=== PATIENT | female | born 1945 | race Caucasian/White ===

== ENCOUNTER 2017-01-30 06:50 | Day surgery (SDC) | payer MEDICARE, MEDICAID ==
[~2017-01-30] VITALS: Ht 160 cm; Wt 95.2 kg
[~2017-01-30 06:50] MED LIST: AMLODIPINE BESYL5 MG PO; ATENOLOL-CHLOR1 EAC1 PO; BENAZEPRIL HCL20 MG PO; COZAAR50 MG PO; FISH OIL 1,0001 EAC1 PO; HYDROCHLOROTHIA25 MG PO; NORCO 5-325 TA1 EACH PO; SAM E PO; VITAMIN C1000 M1 PO; VITAMIN D2000 UNIT PO
--- NOTE | 2017-01-30 10:31 | NUR ---
01/30/17 1031 Alexsandra Ortiz REPORT FROM [employer].
[2017-01-30] MEDS ORDERED: ULTRAM50 MG PO (11:34)
--- NOTE | 2017-01-30 12:38 | NUR ---
PT IN , ALERT AND ORIENTED-SUPPORTED BY A FRIEND. SHE SHARED THIS IS HER THIRD SURGERY WITH DR CARLOS-SHE HAS LOTS OF CONFIDENCE IN HIM. EXTENDED A BLESSING, WILL FOLLOW NEEDED
--- NOTE | 2017-02-11 09:13 | OR ---
[facility] [address] [place], [place] [address] Signed DATE OF PROCEDURE: 01/30/17 PREOPERATIVE DIAGNOSIS: Medial meniscal tear, left knee. POSTOPERATIVE DIAGNOSIS: Medial meniscal tear, left knee. INCIDENTAL FINDINGS Areas of grade 2 to grade 3 chondral roll changer the medial femoral condyle and some areas of grade 2 chondral roll changer the weightbearing portion of the lateral femoral condyle. PROCEDURE: Knee arthroscopy with partial medial meniscectomy. SURGEON: Kalin Carlos MD ANESTHESIA: General. SPECIMEN: None COMPLICATIONS: None TOURNIQUET TIME: Was about 20 minutes. DETAILS OF PROCEDURE The patient taken to the operating room. After anesthesia was induced and airway secured, the patient was positioned, prepped and draped in the routine sterile fashion. The leg was exsanguinated with an Esmarch bandage. Pneumatic tourniquet was inflated to 30 0 mmHg. The outflow cannula was inserted superolaterally and the arthroscope was inserted through the standard anterolateral portal. An anteromedial portal was then created using a transillumination and localization with a spinal needle. A nerve hook was in troduced. Diagnostic arthroscopy revealed a significant inflammatory synovitis in the suprapatellar pouch. The patellofemoral joint had areas of grade 2 to grade 3 chondral changes over the patella and as well as over the trochlea. The medial recess was unremarkable except for some small femoral osteophytes. The medial compartment revealed a flap tear of the posterior horn of the medial meniscus along with some additional bone spurs on the lateral aspect of the medial femoral condyle. Intercondylar notch revealed an intact ACL and PCL. The lateral compartment revealed some areas of grade 2 chondral roll changer the weightbearing portion of the lateral femoral condyle along with a very tiny radial tear at the free edge of the meniscus. The lateral recess was unremarkable. The scope was returned to the medial compartment. By flexing and extending the knee was appreciated, there were some areas of grade 2 to grade 3 change in the medial femoral condyle, particularly over the weightbearing surface and posterior Electronically Signed By: KALIN CARLOS MD 02/11/17 0913 PATIENT NAME: ADRIA EMERSON OPERATIVE REPORT DATE OF : 45 PHYSICIAN: KALIN CARLOS MD REPORT #: [id number] REPORT IS CONFIDENTIAL AND NOT TO BE RELEASED WITHOUT AUTHORIZATION [facility] [address] [place] [id number] Signed there too. We then inserted basket forceps through the anteromedial portal and completed the meniscal tear. A single shard was delivered out of the knee and the edges were then trimmed and contoured with the motorized shaver. The knee was copiously irrigated and drained. The portals were closed with 3-0 nylon. A sterile dressing was applied over which a bulky dressing and Len bandage were placed. The patient was awakened and taken to recovery room, where she arrived in stable condition. Counts were correct and antibiotic protocols were followed. Kalin Carlos MD WFB/Modl /[id number] cc: Isaac Mclaughlin MD Electronically Signed By: KALIN CARLOS MD 02/11/17 0913 PATIENT NAME: ADRIA EMERSON OPERATIVE REPORT DATE OF : 45 PHYSICIAN: KALIN CARLOS MD REPORT #: [id number] REPORT IS CONFIDENTIAL AND NOT TO BE RELEASED WITHOUT AUTHORIZATION
== END 2017-01-30 12:30 | disposition home or self-care (01) ==
LOC: DS 06:50 → OPS 06:50 → DS 08:15 → OPS 08:15
PROVIDERS: Orthopaedic Surgery
PROC: 0SBD4ZZ Excision of Left Knee Joint, Percutaneous Endoscopic Approach (ICD-10-PCS; principal; 2017-01-30 06:45)
DX: S83.242A Other tear of medial meniscus, current injury, left knee, initial encounter (principal); M65.862 Other synovitis and tenosynovitis, left lower leg; I35.0 Nonrheumatic aortic (valve) stenosis; X50.1XXA Overexertion from prolonged static or awkward postures, initial encounter
CPT/HCPCS: 01400; J1885; J2405; J2704; J3010; J3301; J7120

== ENCOUNTER 2017-09-17 08:55 | Day surgery (SDC) | payer MEDICARE, OTHER ==
[~2017-09-17] VITALS: Ht 160 cm; Wt 95.2 kg
[~2017-09-17 08:55] MED LIST changes: +ALEVE220 MG PO; +LOSARTAN POTAS100 MG PO; +PEPCID40 MG PO; +ULTRAM50 MG PO
--- NOTE | 2017-09-17 11:23 | NUR ---
09/17/17 Carlton3 Chanel Garcia 1114 PT ARRIVE TO PACU MAINTAINING HER OWN AIRWAY ON 8L VIA MASK. RESP EVEN AND UNLABORED. 1117 O2 DECREASED TO 6L. PT DENIES PAIN AND NAUSEA.
--- NOTE | 2017-09-17 12:06 | NUR ---
SIG OTHER @ BS. PT ON CONTINUOUS PULSE OXIMETERY. PUDDING AND ICED WATER GIVEN. CALL LIGHT W/IN REACH. PT TOLERATING THE PUDDING WELL.
[2017-09-17] MEDS ORDERED: PERCOCET 5-3251 EACH PO (12:48)
--- NOTE | 2017-09-17 13:02 | NUR ---
OXYGEN SATURATION REMAINS 98% ON 2L VIA NC. OXYGEN DC @ THIS TIME. CONTINUOUS OXIMETERY REMAINS IN PLACE.
--- NOTE | 2017-09-17 13:54 | NUR ---
RENALDO 1345: PT ASSISTED UP OOB WITH STANDBY ASSIST. SHE HELPED THE RESTROOM WHERE IS SHE IS ABLE TO VOID 400ML OF YELLOW URINE. SHE IS HELPED BACK INTO BED. HER ICE BAG IS FILLED WITH FRESH ICE. NO OTHER NEEDS AT THIS TIME.
--- NOTE | 2017-09-18 07:41 | OR ---
[facility] [address] [place], [place] [address] Signed DATE OF OPERATION: 09/17/2017 SURGEON: Rober Ingram MD PREOPERATIVE DIAGNOSES: 1. Elevated liver function test. 2. A 6 mm polypoid lesion, fundus of gallbladder. 3. Fatty liver. POSTOPERATIVE DIAGNOSES: 1. Fatty liver. 2. Thickened gallbladder fundus. 3. Cholelithiasis (3-4 mm stones). 4. Cholesterolosis. 5. Chronic cholecystitis. PROCEDURE: Laparoscopic cholecystectomy without intraoperative cholangiogram. ESTIMATED BLOOD LOSS: None. INDICATIONS: Marcelle is a 71-year-old female, who actually looks much younger than her stated age. She told me her family members lived into their 90s. It looks like she has headed in that direction. Her liver function tests were elevated on recent blood work. Ultrasound of gallbladder showed her fatty liver and what appears to be gallbladder polyp, measuring 6 x 4 x 6 mm in the fundus of the gallbladder. Consequently, she was asked to see me as a general surgeon. We had a long discussion in the office regarding the location of function of the gallbladder. I also gave her a fypio brochure, so we could look at that together. We talked about the possibility of an adherent gallstone versus a polyp. Polyps 1 cm and larger increases the risk for gallbladder cancer. Marcelle wanted to think about it and talk with her primary care provider. She later called us and asked that she have her gallbladder removed, which is certainly a reasonable choice. She understands the location of function of the gallbladder. We reviewed laparoscopic versus open cholecystectomy. There is risk of surgery including, but not limited to, bleeding, infection, scarring, change in contour of the skin, damage to bowel, damage to main bile duct, incisional hernias, and other unforeseen comorbidities. She had expressed understanding and wished to proceed. Electronically Signed By: ROBER INGRAM MD 09/18/17 0741 PATIENT NAME: MARCELLE EMERSON OPERATIVE REPORT DATE OF : 45 REPORT #: [id number] PHYSICIAN: ROBER INGRAM MD PCP: ISAAC SPENCE MD REPORT IS CONFIDENTIAL AND NOT TO BE RELEASED WITHOUT AUTHORIZATION [facility] [address] [place], [place] [address] Signed PROCEDURE NOTE: Marcelle was taken into our operating room and placed in the supine position under general endotracheal tube anesthesia. She was given preoperative antibiotics along with subcutaneous heparin. After this, she was prepped and draped in the usual sterile fashion. SCDs were utilized. All trocars were placed in usual positions under direct visualization of camera without difficulty. We could immediately see that her liver was yellow in color consistent with a fatty liver. She has just a little bit of nodularity to the surface of her liver. The gallbladder was grasped and elevated in the right upper quadrant. Unfortunately, we could not get the gallbladder up and over the edge of the liver and the gallbladder was somewhat deep in the liver. Consequently, we had to bring in another nurse and used our fan retractor through the epigastric midline to push the omentum and bowel down and out of the way of the neck of a gallbladder. The triangle of Calot was then carefully dissected free. We placed a clip across the cystic artery and it was divided. We tried to place our intraoperative cholangiocatheter through the cystic duct, but we ran into the valves of Heister. Consequently, we abandoned the intraoperative cholangiogram. After this, the gallbladder was carefully removed from the gallbladder fossa with the help of a cautery and placed into an EndoCatch bag. We found that it was somewhat deep in the liver and it took some additional time to get the gallbladder out of the liver. After this, we used our laparoscopic suturing device to pass 0 Vicryl suture on either side of the fascia, the subxiphoid and the mid epigastric trocar sites. These were tied down to close these primarily. We irrigated and suctioned out the right upper quadrant. The gallbladder was passed off the field and the remaining trocars were removed. The gallbladder was opened on the back table by our circulating nurse. It was a little thickened and had significant cholesterolosis and the fundus was thickened, but not an actual polyp. There was a 3 to 4 mm yellow cholesterol stone as well as several smaller stones/flecks of cholesterol. She also had significant cholesterolosis. We then closed the fascia of the supraumbilical trocar site with interrupted [id number] and simple 0 Vicryl sutures. Local anesthetic was injected into all trocar sites. Each trocar site was irrigated and suctioned out until clear. The skin and dermis of each trocar site were closed with interrupted 3-0 subcuticular Monocryl sutures. Dry gauze and tape were applied to all incisions. Marcelle was awakened from her anesthesia, extubated in the OR, and taken to recovery room in stable condition. Rober Ingram MD ALB/MODL /[id number] Electronically Signed By: ROBER INGRAM MD 09/18/17 0741 PATIENT NAME: MARCELLE EMERSON OPERATIVE REPORT DATE OF : 45 REPORT #: [id number] PHYSICIAN: ROBER INGRAM MD PCP: ISAAC SPENCE MD REPORT IS CONFIDENTIAL AND NOT TO BE RELEASED WITHOUT AUTHORIZATION [facility] [address] [place], [place] [address] Signed cc: MD Isaac Souza MD Mershed Alsamara, MD Copies: ROBER INGRAM MD, MALCOLM MD ALSAMARA, MERSHED MD ~ Electronically Signed By: ROBER INGRAM MD 09/18/17 0741 PATIENT NAME: MARCELLE EMERSON OPERATIVE REPORT DATE OF : 45 REPORT #: [id number] PHYSICIAN: ROBER INGRAM MD PCP: ISAAC SPENCE MD REPORT IS CONFIDENTIAL AND NOT TO BE RELEASED WITHOUT AUTHORIZATION
== END 2017-09-17 14:30 | disposition home or self-care (01) ==
LOC: DS 08:55
PROVIDERS: Colon & Rectal Surgery
PROC: 0FT44ZZ Resection of Gallbladder, Percutaneous Endoscopic Approach (ICD-10-PCS; principal; 2017-09-17 10:15)
DX: K81.1 Chronic cholecystitis (principal); K82.8 Other specified diseases of gallbladder; I10 Essential (primary) hypertension; E78.5 Hyperlipidemia, unspecified; K75.81 Nonalcoholic steatohepatitis (NASH); E66.9 Obesity, unspecified; I35.0 Nonrheumatic aortic (valve) stenosis; G89.29 Other chronic pain; M54.5 Low back pain; Z87.820 Personal history of traumatic brain injury; Z88.0 Allergy status to penicillin; Z88.2 Allergy status to sulfonamides; Z88.5 Allergy status to narcotic agent; Z79.899 Other long term (current) drug therapy; Z68.37 Body mass index [BMI] 37.0-37.9, adult
CPT/HCPCS: 00790; 88304; J0330; J1100; J1170; J1644; J1885; J2250; J2370; J2405; J2704; J3010; J7120

== ENCOUNTER 2019-12-22 07:45 | Day surgery (SDC) | payer MEDICARE, OTHER ==
[~2019-12-22] VITALS: Ht 160 cm; Wt 96.2 kg
--- NOTE | ~2019-12-22 | OR ---
[facility] [address] [place], [place] [address] Draft DATE OF OPERATION: 12/22/2019 SURGEON: Miguelina Root MD PREOPERATIVE DIAGNOSES: Postmenopausal bleeding, endometrial polyps. POSTOPERATIVE DIAGNOSES: Postmenopausal bleeding, endometrial polyps. Pending pathology. PROCEDURES: Hysteroscopy, resection of polyps. ANESTHESIA: General LMA. ESTIMATED BLOOD LOSS: Minimal. DRAINS: None. INDICATIONS AND FINDINGS: The patient is a 73-year-old female, who recently presented to the office for evaluation of postmenopausal bleeding. She is not on HRT. She had an ultrasound revealed a very thickened endometrium consistent with probable polyps. At the time of surgery, she had significant uterovaginal prolapse. The uterus was top-normal size. The uterus sounded to 9.5 cm. There were several large polyps on a background of atrophy. DESCRIPTION OF PROCEDURE: The patient was prepped and draped in the dorsal lithotomy position. A weighted speculum was placed. The anterior lip of the cervix was visualized and grasped with a single-tooth tenaculum. The cervical os was initially pinpoint and required dilation with very small dilators. After it was dilated, could be placed on a depth determined. The cervix was then dilated easily to a #8 dilator. Following this, the hysteroscope was placed, which was the MyoSure device. This showed that the cavity was atrophic with several large polyps. The hysteroscope was removed and a narrow polyp forceps was introduced and several polyps were removed just with a biopsy forceps. Following this, the hysteroscope was reintroduced and the cavity evaluated. There was still another polyp, which remained. So, the MyoSure Lite was then placed and the PATIENT NAME: ADRIA EMERSON OPERATIVE REPORT DATE OF : 45 REPORT #: [id number] PHYSICIAN: MIGUELINA ROOT MD PCP: CLAY SPENCE MD REPORT IS CONFIDENTIAL AND NOT TO BE RELEASED WITHOUT AUTHORIZATION [facility] [address] [place] [address] Draft remaining polyp was excised. The cavity was evaluated and appeared to be atrophic with no further polyps. The procedure was then terminated. The instruments were removed from the vagina and there was no evidence of any ongoing bleeding from the cervix. The procedure was then terminated. The patient was taken to the recovery room in good condition. All sponge and needle counts were correct. Miguelina Root MD PJW/MODL /[id number] Copies: ~ PATIENT NAME: ADRIA EMERSON OPERATIVE REPORT DATE OF : 45 REPORT #: [id number] PHYSICIAN: MIGUELINA ROOT MD PCP: CLAY SPENCE MD REPORT IS CONFIDENTIAL AND NOT TO BE RELEASED WITHOUT AUTHORIZATION
[~2019-12-22 07:45] MED LIST changes: +CINNAMON500 MG PO; +FISH OIL 1,0001 EAC2 NG; +FLAX SEED OIL1000 MG PO; +LIPITOR20 MG; +METOPROLOL SUCC25 MG PO; +PERCOCET 5-3251 EACH PO; +VITAMIN D325 MC2 PO
--- NOTE | 2019-12-22 08:00 | NUR ---
I met with the pt pre procedure. Pt seemed at ease and even called herself a "frequent flyer." She had no questions about procedure or experience stating that "Dr. Root had thoroughly explained everything." I explained to the pt's guest that he was welcome to stay in the room or could leave and come back if he desired. Pt stated that she "had made things right with those she needed to this morning." I prayed for the pt at the time of visit.
[2019-12-22] MEDS ORDERED: DOXEPIN HCL3 MG PO (08:04)
--- NOTE | 2019-12-22 10:50 | NUR ---
12/22/19 1050 Sophie Perez 1041-PATIENT ARRIVED TO PACU ON 6L MASK NONAROUSABLE RR EVEN. ORAL AIRWAY IN PLACE. CHICA PAD TO VAGINAL AREA CDI. IVF INFUSING. SR WITH TWAVE INVERSION WILL NOTIFY CLARENCE GAN IF SYMPTOMATIC. 1047-PATIENT AROUSING TO VERBAL STIMULI OPENING EYES RAISING HANDS TO MOUTH ORAL AIRWAY REMOVED. ORIENTED TO PACU DENIES PAIN OR NAUSEA.
--- NOTE | 2019-12-22 11:18 | NUR ---
ICED WATER GIVEN. DEVON HUGGER ON WARM. CALL LIGHT WITHIN REACH. PATIENT'S SIGNIFICANT OTHER NOTIFIED VIA TELEPHONE THAT PATIENT HAS RETURNED TO ROOM 3.
[2019-12-22] MEDS ORDERED: ULTRAM50 MG PO (11:32)
[2019-12-22] MEDS ORDERED: MOTRIN IB200 MG PO (11:32)
--- NOTE | 2019-12-22 12:35 | NUR ---
LE 1218: PATIENT IS UP TO THE BEDSIDE COMMODE. SHE VOIDS 125 ML BLOODY URINE AND NEW CHICA-PAD IS GIVEN. PATIENT IS GETTING DRESSED IN PRESENSE OF SIGNIFICANT OTHER. DISCHARGE INSTRUTIONS ARE GIVEN AND PATIENT AND SIGNFICANT OTHER ARE GIVEN DISCHARGE INSTRUCTIONS AND BOTH VERBALIZE UNDERSTANDING. PATIENT TRANSFERS HERSELF TO WHEELCHAIR AND THEN TO PERSONAL VEHICLE AND TOLERATES THAT WELL.
--- NOTE | 2019-12-24 16:57 | PATH ---
[facility] [address] [facility] [place] [address] Signed SPECIMEN(S): A ENDOMETRIAL POLYPS SPECIMEN SOURCE: A. ENDOMETRIAL POLYPS CLINICAL HISTORY: Postmenopausal bleeding. FINAL PATHOLOGIC DIAGNOSIS: Endometrium, polyps, polypectomy: - Fragments of benign endometrial polyps. - Negative for atypical hyperplasia or malignancy. COMMENT: Definitive background endometrium is not identified within the tissue. If clinical concern exists, a repeat biopsy with background endometrium may be helpful for evaluation. NAL:cml:C2NR MICROSCOPIC EXAMINATION: Histologic sections of all submitted blocks are examined by light microscopy. These findings, together with the gross examination, support the pathologic diagnosis. GROSS DESCRIPTION: The specimen, labeled "SH, A," and designated on the requisition "endometrial polyps," is received in formalin and consists of laguna-brown, polypoid tissue fragments measuring 5.0 x 2.6 x 0.7 cm in aggregate. The specimen is filtered and entirely submitted in cassettes (A1-A2). AT (under the direct supervision of a pathologist) The Gross Description was prepared using a voice recognition system. The report was reviewed for accuracy; however, sound-alike word errors, addition and/or deletions may occur. If there is any question about this report, please contact Client Services. PERFORMING LABORATORY: The technical component was performed by [facility] [facility], [address] [place] [id number] (Motion And Time Study Teacher: Cary Wolf MD; CLIA# [id number]). [facility] [address] [facility]. 107, PATIENT NAME: ADRIA EMERSON PATHOLOGY DATE OF : 45 REPORT #: [id number] PHYSICIAN: [facility] PCP: CLAY SPENCE MD REPORT IS CONFIDENTIAL AND NOT TO BE RELEASED WITHOUT AUTHORIZATION [address] [place] [address] Signed [place] [id number] (CLIA# [id number]). Diagnostician: Flores Desai MD Pathologist Electronically Signed 12/24/2019 Copies: ~ PATIENT NAME: ADRIA EMERSON PATHOLOGY DATE OF : 45 REPORT #: [id number] PHYSICIAN: [facility] PCP: CLAY SPENCE MD REPORT IS CONFIDENTIAL AND NOT TO BE RELEASED WITHOUT AUTHORIZATION
== END 2019-12-22 12:25 | disposition home or self-care (01) ==
LOC: DS 07:45
PROVIDERS: Obstetrics & Gynecology
PROC: 0UB98ZZ Excision of Uterus, Via Natural or Artificial Opening Endoscopic (ICD-10-PCS; principal; 2019-12-22 08:45)
DX: N84.0 Polyp of corpus uteri (principal); Z79.899 Other long term (current) drug therapy; I10 Essential (primary) hypertension; E78.2 Mixed hyperlipidemia
CPT/HCPCS: 00952; 88305; J1100; J1885; J2001; J2405; J2704; J3010; J7121